=== PATIENT | female | born 1955 | race Caucasian/White ===

== ENCOUNTER 2020-07-20 13:50 | Emergency (ER) | payer MEDICARE, OTHER ==
--- NOTE | 2020-07-20 14:14 | EDM.PDOC ---
ED HPI GENERAL MEDICAL PROBLEM - General Chief Complaint: General Stated Complaint: NAUSEA AND RETAINING FLUID/CHEMO PT Time Seen by Provider: 07/20/20 14:25 Source of Information: Reports: Patient, RN Notes Reviewed - History of Present Illness INITIAL COMMENTS - FREE TEXT/NARRATIVE: 65 yr old female with leg swelling that started about 10 days ago and much worse the past 3 to 4 days. Mild dyspnea with exertion, mild orthopnea the last few days as well. She has hx of lung Ca diagnosed about 4 yrs ago but not really treated until this past spring. She does have bone mets per patient. Is currently on oral chemo. She did have DVT a couple of months ago. She was on eliquis for that which apparently was stopped just 2 or 3 weeks ago. No chest pain, cough, fever or chills. - Related Data Allergies Allergy/AdvReac Type Severity Reaction Status Date / Time No Known Allergies Allergy Verified 07/20/20 14:04 Home Meds: Home Meds Acetaminophen [Tylenol Extra Strength] 1 tab PO Q6HR PRN 07/20/20 [History] Capecitabine 3 tab PO BID 07/20/20 [History] D-Methorphan/PE/Acetaminophen [Kesha-Baxter Plus Day Cap] 1 each PO DAILY 07/20/20 [History] Docusate Sodium [Colace] 100 mg PO BEDTIME 07/20/20 [History] Furosemide [Lasix] 40 mg PO DAILY #30 tab 07/20/20 [Rx] Gabapentin [Neurontin] 300 mg PO BEDTIME 07/20/20 [History] Meclizine HCl 25 mg PO DAILY 07/20/20 [History] Morphine [MS Contin] 15 mg PO BID 07/20/20 [History] Morphine [MS Contin] 30 mg PO DAILY 07/20/20 [History] OLANZapine [ZyPREXA] 2.5 mg PO BEDTIME 07/20/20 [History] Sennosides [Senna] 2 tab PO BID 07/20/20 [History] Social & Family History - Tobacco Use Smoking Status *Q: Never Smoker - Caffeine Use Caffeine Use: Reports: None - Recreational Drug Use Recreational Drug Use: No ED ROS GENERAL - Review of Systems Review Of Systems: See Below Constitutional: Denies: Fever, Chills, Diaphoresis HEENT: Reports: No Symptoms Respiratory: Reports: Shortness of Breath. Denies: Cough Cardiovascular: Reports: Edema (bilat lower legs, feet and ankles), Other (orthopnea). Denies: Chest Pain GI/Abdominal: Denies: Abdominal Pain, Nausea, Vomiting Musculoskeletal: Denies: Back Pain Skin: Reports: No Symptoms. Denies: Rash Neurological: Reports: No Symptoms ED EXAM, GENERAL - Physical Exam Exam: See Below General Appearance: Alert, No Apparent Distress Head: Atraumatic Neck: Supple Respiratory/Chest: No Respiratory Distress, Lungs Clear, Normal Breath Sounds. No: Rhonchi, Wheezing Cardiovascular: Regular Rate, Rhythm GI/Abdominal: Soft, Non-Tender Back Exam: No: CVA Tenderness (L), CVA Tenderness (R) Extremities: Pedal Edema (moderate bilat). No: Leg Pain, Increased Warmth, Redness Neurological: Oriented, No Motor/Sensory Deficits Skin Exam: Warm, Dry, Normal Color Course - Vital Signs Last Recorded V/S: Last Vital Signs Temp 98.2 F 07/20/20 14:00 Pulse 81 07/20/20 15:07 Resp 18 07/20/20 14:00 BP 130/82 07/20/20 15:07 Pulse Ox 99 07/20/20 15:07 - Orders/Labs/Meds Labs: Laboratory Tests 07/20/20 07/20/20 07/20/20 Range/Units 14:40 14:40 14:40 WBC 3.89 L (3.98-10.04) K/mm3 RBC 2.94 L (3.98-5.22) M/mm3 Hgb 9.7 L (11.2-15.7) gm/dl Hct 30.5 L (34.1-44.9) % MCV 103.7 H (79.4-94.8) fl MCH 33.0 H (25.6-32.2) pg MCHC 31.8 L (32.2-35.5) g/dl RDW Std Deviation 75.2 H (36.4-46.3) fL Plt Count 302 (182-369) K/mm3 MPV 9.0 L (9.4-12.3) fl Neut % (Auto) 72.9 H (34.0-71.1) % Lymph % (Auto) 11.3 L (19.3-51.7) % [place] % (Auto) 12.9 H (4.7-12.5) % Eos % (Auto) 2.1 (0.7-5.8) Baso % (Auto) 0.5 (0.1-1.2) % Neut # (Auto) 2.84 (1.56-6.13) K/mm3 Lymph # (Auto) 0.44 L (1.18-3.74) K/mm3 [place] # (Auto) 0.50 H (0.24-0.36) K/mm3 Eos # (Auto) 0.08 (0.04-0.36) K/mm3 Baso # (Auto) 0.02 (0.01-0.08) K/mm3 D-Dimer, Quantitative 1.92 H (0.19-0.50) mg/L Sodium 137 (136-145) mEq/L Potassium 4.0 (3.5-5.1) mEq/L Chloride 102 (98-107) mEq/L Carbon Dioxide 28 (21-32) mEq/L Anion Gap 11.0 (5-15) BUN 10 (7-18) mg/dL Creatinine 0.8 (0.55-1.02) mg/dL Est Cr Clr Drug Dosing 75.81 mL/min Estimated GFR (MDRD) > 60 (>60) mL/min BUN/Creatinine Ratio 12.5 L (14-18) Glucose 100 (80-115) mg/dL Calcium 8.8 (8.5-10.1) mg/dL Total Bilirubin 0.2 (0.2-1.0) mg/dL AST 26 (15-37) U/L ALT 19 (14-59) U/L Alkaline Phosphatase 131 H (46-116) U/L NT-Pro-B Natriuret Pep (0-125) pg/mL Total Protein 6.1 L (6.4-8.2) g/dl Albumin 3.0 L (3.4-5.0) g/dl Globulin 3.1 gm/dL Albumin/Globulin Ratio 1.0 (1-2) Urine Color (Yellow) Urine Appearance (Clear) Urine pH (5.0-8.0) Ur Specific [place] (1.005-1.030) Urine Protein (Negative) Urine Glucose (UA) (Negative) Urine Ketones (Negative) Urine Occult Blood (Negative) Urine Nitrite (Negative) Urine Bilirubin (Negative) Urine Urobilinogen (0.2-1.0) Ur Leukocyte Esterase (Negative) 07/20/20 07/20/20 Range/Units 14:40 17:40 WBC (3.98-10.04) K/mm3 RBC (3.98-5.22) M/mm3 Hgb (11.2-15.7) gm/dl Hct (34.1-44.9) % MCV (79.4-94.8) fl MCH (25.6-32.2) pg MCHC (32.2-35.5) g/dl RDW Std Deviation (36.4-46.3) fL Plt Count (182-369) K/mm3 MPV (9.4-12.3) fl Neut % (Auto) (34.0-71.1) % Lymph % (Auto) (19.3-51.7) % [place] % (Auto) (4.7-12.5) % Eos % (Auto) (0.7-5.8) Baso % (Auto) (0.1-1.2) % Neut # (Auto) (1.56-6.13) K/mm3 Lymph # (Auto) (1.18-3.74) K/mm3 [place] # (Auto) (0.24-0.36) K/mm3 Eos # (Auto) (0.04-0.36) K/mm3 Baso # (Auto) (0.01-0.08) K/mm3 D-Dimer, Quantitative (0.19-0.50) mg/L Sodium (136-145) mEq/L Potassium (3.5-5.1) mEq/L Chloride (98-107) mEq/L Carbon Dioxide (21-32) mEq/L Anion Gap (5-15) BUN (7-18) mg/dL Creatinine (0.55-1.02) mg/dL Est Cr Clr Drug Dosing mL/min Estimated GFR (MDRD) (>60) mL/min BUN/Creatinine Ratio (14-18) Glucose (80-115) mg/dL Calcium (8.5-10.1) mg/dL Total Bilirubin (0.2-1.0) mg/dL AST (15-37) U/L ALT (14-59) U/L Alkaline Phosphatase (46-116) U/L NT-Pro-B Natriuret Pep 742 H (0-125) pg/mL Total Protein (6.4-8.2) g/dl Albumin (3.4-5.0) g/dl Globulin gm/dL Albumin/Globulin Ratio (1-2) Urine Color Light yellow (Yellow) Urine Appearance Clear (Clear) Urine pH 7.5 (5.0-8.0) Ur Specific [place] 1.020 (1.005-1.030) Urine Protein Negative (Negative) Urine Glucose (UA) Negative (Negative) Urine Ketones Negative (Negative) Urine Occult Blood Negative (Negative) Urine Nitrite Negative (Negative) Urine Bilirubin Negative (Negative) Urine Urobilinogen 0.2 (0.2-1.0) Ur Leukocyte Esterase Negative (Negative) Meds: Medications Discontinued Medications Generic Name Dose Route Start Last Admin Trade Name Freq PRN Reason Stop Dose Admin Furosemide 40 mg 07/20/20 16:32 07/20/20 16:37 Lasix PO 07/20/20 16:33 40 mg ONETIME ONE Administration - Re-Assessments/Exams Free Text/Narrative Re-Assessment/Exam: 07/20/20 17:44 discussed with her Oncologist, [facility], Dr Schilling. He agrees with labs ordered. Wants us to check a urine to see if she is leaking much protein. Still waiting on Ua. Have given lasix 40 mg PO awhile ago. Kidney function is good. Departure - Departure Time of Disposition: 18:34 Disposition: Home, Self-Care 01 Condition: Fair Clinical Impression: Leg edema - Discharge Information Prescriptions: Furosemide [Lasix] 40 mg PO DAILY #30 tab Instructions: Edema, [id number] Referrals: PCP,Not In Area [Primary Care Provider] - Forms: ED Department Discharge Additional Instructions: high protein low salt diet. Lasix 40 mg q AM. Eliquis 10 mg twice daily for 1 week. Than 5 mg twice daily. Elevate legs as much as possible when not walking. Track daily weights. Your liver and kidney function is good. Start your chemo if it is time to do that. See your Oncologist in 2 weeks as planned. Call your Oncologist as needed if needed for further medical advice. Sepsis Event Note (ED) - Evaluation Sepsis Screening Result: No Definite Risk - Focused Exam Vital Signs: Vital Signs Temp Pulse Resp BP Pulse Ox 07/20/20 15:07 81 130/82 99 07/20/20 14:00 98.2 F 77 18 150/90 H 100
--- NOTE | 2020-07-20 14:47 | CR ---
Chest: Portable view of the chest was obtained. Comparison: No prior chest imaging is available. Increased density with right lateral costophrenic angle is seen. Heart is enlarged. Pulmonary vessels appeared to be slightly congested. Bony structures are grossly intact. Mild scoliosis is present. Impression: 1. Findings suspicious for mild CHF. 2. Focal density within the right lateral costophrenic angle possibly due to pleural effusion although findings could represent an area of atelectasis or even small area of pneumonia. 3. No additional abnormality is appreciated. Diagnostic code #3 This report was dictated in MDT
[2020-07-20] MEDS ORDERED: Furosemide 40 MG Tab PO ONE (16:32)
== END 2020-07-20 18:45 | disposition home or self-care (01) ==
LOC: JD.ED 13:50
DX: R60.0 Localized edema (principal); R06.02 Shortness of breath; Z79.899 Other long term (current) drug therapy
CPT/HCPCS: 36415; 71045; 71045-26; 80053; 81003; 83880; 85025; 85379; 99283-25; A9270-GY